=== PATIENT | male | born 1975 | race Caucasian/White ===

== ENCOUNTER 2016-12-14 16:54 | Observation (INO) | payer OTHER ==
[~2016-12-14] VITALS: Ht 185.4 cm; Wt 100.0 kg
[~2016-12-14 16:54] MED LIST: CEPH500C3 PO; PARO20 PO; SERO400T PO; TRAZ150T75 PO
[2016-12-14 16:56] VITALS: BP 138/81; PULSE 74; RESP 12; TEMP 98.1; O2SAT 98
--- NOTE | 2016-12-14 17:56 | PD ---
HPI Chief Complaint: Skin Problem Time Seen by Provider: 17:54 Travel History International Travel<30 days: No Contact w/Intl Traveler<30days: No Traveled to known affect area: No History of Present Illness HPI 41-year-old male presents to emergency Department with complaint of multiple lesions to his right arm, 1 to his left hand third digit, in one to the bottom of his right foot that have developed over the past 3-4 days. They started out looking like pimples and then may drain purulent drainage. He has never had anything like this before. Reports feeling feverish 3 days ago. Reports vomiting times one yesterday. Denies feeling feverish or vomiting today. Areas are painful. Patient to the bottom of his right foot is so painful he can 't apply pressure. No one else with a rash like this that he knows of. Denies IV drug use. Is not taking any medications or tried any treatments to relieve his symptoms. Denies allergies. No other modifying factors or associated signs and symptoms here. PFSH Past Medical History Medical History: Denies Significant Hx Diabetes: No Diminished Hearing: No Tetanus Vaccination: < 5 Years Past Surgical History Surgical History: No Previous Surgery Social History Alcohol Use: No Tobacco Use: Yes Substance Use: Yes (marijuana) Allergies-Medications (Allergen,Severity, Reaction): Coded Allergies: No Known Allergies (Verified , 12/14/16) Reported Meds & Prescriptions Reported Meds & Active Scripts Active Review of Systems Except as stated in HPI: all other systems reviewed are Neg Physical Exam Narrative GENERAL: Well-nourished, well-developed male patient, in no acute distress; afebrile, nontoxic-appearing SKIN: There are multiple indurated areas that have all drained and are scabbed over; one to the right bicep area, one to the right forearm, one to the right wrist that of all nonfluctuant and scabbed over. There is a fluctuant area to the distal aspect of the left hand third finger, consistent with a paronychia. There is a lesion to the bottom of the right foot that is open and is severely tender to touch; there is a zone of inflammation and erythema surrounding this lesion; no drainage noted. HEAD: Atraumatic. Normocephalic. EYES: Pupils equal and round. No scleral icterus. No injection or drainage. ENT: Mucosa pink and moist. Airway patent. NECK: Trachea midline. CARDIOVASCULAR: Regular rate. RESPIRATORY: No accessory muscle use. GASTROINTESTINAL: Rounded. MUSCULOSKELETAL: No obvious deformities. No clubbing. No cyanosis. No edema. NEUROLOGICAL: Awake and alert. Oriented 3. No obvious cranial nerve deficits. Motor grossly within normal limits. Normal speech. PSYCHIATRIC: Appropriate mood and affect; insight and judgment normal. Data Data Last Documented VS Vital Signs Date Time Temp Pulse Resp B/P Pulse Ox O2 Delivery O2 Flow Rate FiO2 12/14/16 20:00 18 12/14/16 16:56 98.1 74 138/81 98 Room Air Orders Foot, Complete ([id number]) (12/14/16 18:08) Ibuprofen (Motrin) (12/14/16 18:15) Wound Culture And Gram Stain (12/14/16 18:22) Tetanus/Diphtheria Tox Adult (Tetanus/Di (12/14/16 18:30) Crutches (12/14/16 19:01) Complete Blood Count With Diff (12/14/16 19:16) Basic Metabolic Panel (Bmp) (12/14/16 19:16) Blood Culture (12/14/16 19:16) Drug Screen, Random Urine (12/14/16 19:16) Iv Access Insert/Monitor (12/14/16 19:16) Clindamycin Inj (Cleocin Inj) (12/14/16 19:30) Admit Order (Ed Use Only) (12/14/16 20:05) Labs Laboratory Tests Test 12/14/16 19:45 White Blood Count 10.5 TH/MM3 Red Blood Count 4.64 MIL/MM3 Hemoglobin 13.9 GM/DL Hematocrit 40.0 % Mean Corpuscular Volume 86.3 FL Mean Corpuscular Hemoglobin 30.0 PG Mean Corpuscular Hemoglobin 34.7 % Concent Red Cell Distribution Width 13.2 % Platelet Count 314 TH/MM3 Mean Platelet Volume 9.1 FL Neutrophils (%) (Auto) 73.4 % Lymphocytes (%) (Auto) 18.7 % Monocytes (%) (Auto) 5.8 % Eosinophils (%) (Auto) 1.2 % Basophils (%) (Auto) 0.9 % Neutrophils # (Auto) 7.7 TH/MM3 Lymphocytes # (Auto) 2.0 TH/MM3 Monocytes # (Auto) 0.6 TH/MM3 Eosinophils # (Auto) 0.1 TH/MM3 Basophils # (Auto) 0.1 TH/MM3 CBC Comment DIFF FINAL Differential Comment Sodium Level 137 MEQ/L Potassium Level 3.8 MEQ/L Chloride Level 102 MEQ/L Carbon Dioxide Level 28.7 MEQ/L Anion Gap 6 MEQ/L Blood Urea Nitrogen 10 MG/DL Creatinine 0.84 MG/DL Estimat Glomerular Filtration 101 ML/MIN Rate Random Glucose 132 MG/DL Calcium Level 8.1 MG/DL MDM Medical Decision Making Medical Screen Exam Complete: Yes Emergency Medical Condition: Yes Medical Record Reviewed: Yes Differential Diagnosis Multiple abscesses, MRSA, paronychia, osteomyelitis Narrative Course 41-year-old male physical exam consistent with multiple abscesses that have drained and have scabbed over. There is an abscess to the distal aspect of the left hand third digit, consistent with paronychia, which I incised and drained. See my procedure note. There is an abscess to the bottom of the right foot that has extension of cellulitis; I'm concerned of possible osteomyelitis and will order an x-ray of the foot to rule that out. Patient reports feeling feverish 3 days ago and one time yesterday. He is afebrile and nontoxic- appearing here in the ER. He has not vomited today. Denies IV drug use. Ibuprofen administered in the ER. Right foot x-ray ordered. 1900: Porfirio Ellison PA-C, assumed patient care at this time. Report given. See his note for patient disposition. Procedures Procedure Narrative INCISION AND DRAINAGE OF ABSCESS: The distal aspect of the right third finger was prepped and was sterilely draped. A 22-gauge needle was used to make a pinpoint puncture into the the area of the abscess. Cultures were obtained. The abscess was drained an irrigated with normal saline. Sterile dressing applied. Farzana Young [facility] Dec 14, 2016 17:56
[2016-12-14] MEDS ORDERED: BACT800T5 PO (18:08)
[2016-12-14] MEDS ORDERED: CEPH-460 PO (18:08)
[2016-12-14] MEDS ORDERED: IBUP800T23 PO (18:08)
[2016-12-14] MEDS ORDERED: IBUPROFEN 800 MG TAB PO ONE (18:15)
[2016-12-14] MEDS ORDERED: TETANUS/DIPHTHERIA TOXOID ADULT 0.5 ML VIAL IM ONE (18:30)
--- NOTE | 2016-12-14 19:02 | RADRPT ---
EXAM DATE/TIME: 12/14/2016 18:31 [place] COMPARISON: No previous studies available for comparison. INDICATIONS : Right foot pain and swelling MEDICAL HISTORY : None. SURGICAL HISTORY : None. ENCOUNTER: Initial ACUITY: 1 day PAIN SCORE: 8/10 LOCATION: Right foot. FINDINGS: There is radiopaque foreign body in the plantar surface of the foot centered in between the fourth an d fifth web spaces. Fracture is not appreciated. CONCLUSION: Radiopaque foreign body. Tariq Kramer MD FACR on December 14, 2016 at 18:53 Board Certified Radiologist. This report was verified electronically.
[2016-12-14] MEDS ORDERED: CLINDAMYCIN INJ 900 MG in SODIUM CHLORIDE 0.9% INJ 100 ML IV ONE (19:30)
[2016-12-14 19:59] LABS: AUTOMATED NEUTROPHIL # 7.7 TH/MM3 (1.8-7.7); BASOPHIL # 0.1 TH/MM3 (0-0.2); BASOPHIL % 0.9 % (0.0-2.0); EOSINOPHIL # 0.1 TH/MM3 (0-0.4); EOSINOPHIL % 1.2 % (0.0-4.0); HEMO FLAGS DIFF FINAL; LYMPH % 18.7 % (9.0-44.0); MEAN CELL VOLUME 86.3 FL (80.0-100.0); MEAN CORPUSCULAR HGB CONC 34.7 % (32.0-36.0); MONO % 5.8 % (0.0-8.0); NEUT % 73.4 % (16.0-70.0); PLATELET COUNT 314 TH/MM3 (150-450); RED BLOOD COUNT 4.64 MIL/MM3 (4.50-5.90); RED CELL DISTRIBUTION WIDTH 13.2 % (11.6-17.2); WHITE BLOOD COUNT 10.5 TH/MM3 (4.0-11.0)
--- NOTE | 2016-12-14 20:12 | PD ---
Physical Exam Date Seen by Provider: Dec 14, 2016 Time Seen by Provider: 20:09 Data Data Last Documented VS Vital Signs Date Time Temp Pulse Resp B/P Pulse Ox O2 Delivery O2 Flow Rate FiO2 12/14/16 16:56 98.1 74 12 138/81 98 Room Air Orders Foot, Complete ([id number]) (12/14/16 18:08) Ibuprofen (Motrin) (12/14/16 18:15) Wound Culture And Gram Stain (12/14/16 18:22) Tetanus/Diphtheria Tox Adult (Tetanus/Di (12/14/16 18:30) Crutches (12/14/16 19:01) Complete Blood Count With Diff (12/14/16 19:16) Basic Metabolic Panel (Bmp) (12/14/16 19:16) Blood Culture (12/14/16 19:16) Drug Screen, Random Urine (12/14/16 19:16) Iv Access Insert/Monitor (12/14/16 19:16) Clindamycin Inj (Cleocin Inj) (12/14/16 19:30) Admit Order (Ed Use Only) (12/14/16 20:05) Labs Laboratory Tests Test 12/14/16 19:45 White Blood Count 10.5 TH/MM3 Red Blood Count 4.64 MIL/MM3 Hemoglobin 13.9 GM/DL Hematocrit 40.0 % Mean Corpuscular Volume 86.3 FL Mean Corpuscular Hemoglobin 30.0 PG Mean Corpuscular Hemoglobin 34.7 % Concent Red Cell Distribution Width 13.2 % Platelet Count 314 TH/MM3 Mean Platelet Volume 9.1 FL Neutrophils (%) (Auto) 73.4 % Lymphocytes (%) (Auto) 18.7 % Monocytes (%) (Auto) 5.8 % Eosinophils (%) (Auto) 1.2 % Basophils (%) (Auto) 0.9 % Neutrophils # (Auto) 7.7 TH/MM3 Lymphocytes # (Auto) 2.0 TH/MM3 Monocytes # (Auto) 0.6 TH/MM3 Eosinophils # (Auto) 0.1 TH/MM3 Basophils # (Auto) 0.1 TH/MM3 CBC Comment DIFF FINAL Differential Comment MDM Medical Record Reviewed: Yes Supervised Visit with CARLOS ALBERTO: No Interpretation(s) Right foot: Positive for body Differential Diagnosis MDM: High Differential diagnoses: Abscess, folliculitis, cellulitis, lymphangitis, abrasion, contact dermatitis Narrative Course IV access is obtained. Routine laboratory tests were analysis including CBC, chemistry, blood culture and wound culture. Patient's given clindamycin 900 mg IV. The patient has a retained foreign body in his right foot which has become infected. He has multiple superficial abscesses. The patient will necessitate IV antibiotics and surgical for minor removal from the foot by the marine superintendent. I discussed the case with who accepted the patient's admission. Diagnosis Primary Impression: Foreign body in foot, right, infected Qualified Code: S90.851A - Foreign body in foot, right, infected, initial encounter Additional Impression: Abscess Admitting Information Admitting Physician Requests: Observation Condition: Stable Porfirio Ellison Dec 14, 2016 20:12
[2016-12-14 20:19] LABS: BICARBONATE 28.7 MEQ/L (21.0-32.0); POTASSIUM 3.8 MEQ/L (3.5-5.1)
[2016-12-14] MEDS ORDERED: Vancomycin Consult Pharmacy 1 EA OTHER SCH (20:30)
[2016-12-14] MEDS ORDERED: SODIUM CHLORIDE 0.9% FLUSH 5 ML FLUSH FLUSH PRN (20:30)
[2016-12-14] MEDS ORDERED: NALOXONE HCL 0.4 MG/ML AMP IV PRN (20:30)
[2016-12-14] MEDS: SODIUM CHLORIDE 0.9% FLUSH 5 ML FLUSH FLUSH SCH (21:00)
[2016-12-14 21:15] VITALS: BP 125/68; PULSE 74; RESP 16; O2SAT 97
[2016-12-14 22:48] VITALS: BP 141/65; PULSE 68; RESP 18; TEMP 97.9; O2SAT 97
[2016-12-14] MEDS: PIPERACIL-TAZO 4.5 GM PREMIX 100 ML IV SCH (23:25)
[2016-12-14 23:45] VITALS: PULSE 88
[2016-12-15] VITALS (7 sets, daily range): BP systolic 115–136; BP diastolic 56–92; PULSE 61–73; RESP 16–20; TEMP 98–98.2; O2SAT 95–98
[2016-12-15] MEDS: VANCOMYCIN INJ 1,750 MG in SODIUM CHLORID 0.9% 500 ML INJ 500 ML IV SCH ×4 (00:19→23:52)
[2016-12-15] MEDS: PIPERACIL-TAZO 4.5 GM PREMIX 100 ML IV SCH ×4 (03:36→22:14)
[2016-12-15] MEDS: MORPHINE SULFATE 4 MG/ML INJ IV PUSH PRN ×5 (04:31→23:54)
[2016-12-15 05:30] LABS: AMPHETAMINE, URINE POS (NEG); BARBITURATES, URINE NEG (NEG); COCAINE, URINE NEG (NEG)
--- NOTE | 2016-12-15 05:30 | HHI.HP ---
[facility]ician No Primary Care Physician Admission Diagnosis infected foreign body right foot Diagnoses: Chief Complaint: Right foot pain Travel History International Travel<30 Days: No Contact w/Intl Traveler <30 Da: No Traveled to Known Affected Are: No History of Present Illness History taken from patient and ED physician. 41-year-old male with no medical history presents with increasing pain to the ball of the right foot with associated fever and vomiting. Patient states one year ago he remembers stepping on a piece of glass with his right foot but did not think the glass was still left in the. He states for the last 3 days ago the ball of his right foot started draining with pus and a lesion to his right inner forearm and right wrist also started draining. Today he developed fevers at home of an unknown temperature and vomited several times. Patient denies any history of MRSA infection. Patient states the lesions to his right inner forearm and right wrist first started out as what he thought was a pimple. He states he hasn't been unable to walk and put pressure on the ball of his right foot. He denies any numbness or tingling. Patient denies any chest pain, short of breath or diarrhea. Review of Systems Constitutional: COMPLAINS OF: Fever, DENIES: Chills Respiratory: DENIES: Cough, Sputum production, Shortness of breath Cardiovascular: DENIES: Chest pain, Syncope, Lower Extremity Edema, Orthopnea Gastrointestinal: COMPLAINS OF: Nausea, Vomiting, DENIES: Abdominal pain, Bloody stools, Constipation, Diarrhea Genitourinary: DENIES: Hematuria, Dysuria Musculoskeletal: COMPLAINS OF: Joint pain, DENIES: Back pain, Neck pain Integumentary: DENIES: Rash Hematologic/lymphatic: DENIES: Lymphadenopathy Immunologic/allergic: DENIES: Urticaria Neurologic: DENIES: Headache Past Family Social History Past Medical History Patient denies any medical history Past Surgical History Anterior cruciate ligament repair left knee 4 Reported Medications Reported Meds & Active Scripts Active Allergies: Coded Allergies: No Known Allergies (Verified , 12/14/16) Active Ordered Medications Current Medications Medications (Trade) Dose Ordered Sig/Dustin Route Start Time Stop Time Status Last Admin (NS Flush) 2 ml UNSCH PRN FLUSH 12/14/16 20:30 (NS Flush) 2 ml BID FLUSH 12/14/16 21:00 Naloxone HCl 0.4 mg 0.4 mg UNSCH PRN IV 12/14/16 20:30 Pharmacy Profile Note 0 ml @ 0 mls/hr UNSCH OTHER 12/14/16 20:30 (Zosyn 4.5 Gm Premix) 100 ml @ 200 mls/hr Q6H IV 12/14/16 21:00 12/15/16 03:36 Morphine Sulfate 2 mg 2 mg Q4H PRN IV PUSH 12/14/16 20:30 12/15/16 04:31 (Vancomycin Inj/ NS 500 ml Inj) 517.5 ml @ 250 mls/hr Q8H IV 12/14/16 22:00 12/15/16 00:19 Miscellaneous Information SPECIFIC LAB TO BE ORA... ONCE ONCE XX 12/15/16 21:45 12/15/16 21:46 Family History Patient denies any family history Social History Tobacco use: 11/29 ppd Alcohol use: Denies Illicit drug use: Marijuana Physical Exam Vital Signs Vital Signs Date Time Temp Pulse Resp B/P Pulse Ox O2 Delivery O2 Flow Rate FiO2 12/15/16 04:38 61 18 115/56 97 12/14/16 23:45 88 12/14/16 22:48 97.9 68 18 141/65 97 12/14/16 21:15 74 16 125/68 97 Room Air 12/14/16 20:00 18 12/14/16 16:56 98.1 74 12 138/81 98 Room Air Physical Exam GENERAL: This is a well-nourished, well-developed patient, in no apparent distress. SKIN: Crusted lesion to right inner forearm and right wrist. Crusted lesion to the ball of the right foot. No drainage noted HEAD: Atraumatic. Normocephalic. EYES: Pupils equal round and reactive. ENT: Nose without bleeding, purulent drainage or septal hematoma. Airway patent. NECK: Trachea midline. No JVD CARDIOVASCULAR: Regular rate and rhythm without murmurs, gallops, or rubs. RESPIRATORY: Clear to auscultation. Breath sounds equal bilaterally. No wheezes , rales, or rhonchi. GASTROINTESTINAL: Abdomen soft, non-tender, nondistended. No guarding. MUSCULOSKELETAL: Plantar surface of right foot tenderness, No calf tenderness. NEUROLOGICAL: Awake and alert. Motor and sensory grossly within normal limits. Normal speech. Laboratory Laboratory Tests Test 12/14/16 19:45 White Blood Count 10.5 Red Blood Count 4.64 Hemoglobin 13.9 Hematocrit 40.0 Mean Corpuscular Volume 86.3 Mean Corpuscular Hemoglobin 30.0 Mean Corpuscular Hemoglobin 34.7 Concent Red Cell Distribution Width 13.2 Platelet Count 314 Mean Platelet Volume 9.1 Neutrophils (%) (Auto) 73.4 Lymphocytes (%) (Auto) 18.7 Monocytes (%) (Auto) 5.8 Eosinophils (%) (Auto) 1.2 Basophils (%) (Auto) 0.9 Neutrophils # (Auto) 7.7 Lymphocytes # (Auto) 2.0 Monocytes # (Auto) 0.6 Eosinophils # (Auto) 0.1 Basophils # (Auto) 0.1 CBC Comment DIFF FINAL Differential Comment Sodium Level 137 Potassium Level 3.8 Chloride Level 102 Carbon Dioxide Level 28.7 Anion Gap 6 Blood Urea Nitrogen 10 Creatinine 0.84 Estimat Glomerular Filtration 101 Rate Random Glucose 132 Calcium Level 8.1 Date/Time Procedure Status Source Growth 12/14/16 19:45 Gram Stain Received Wound Foot Pending 12/14/16 19:45 Wound Culture Received Wound Foot Pending 12/14/16 19:45 Aerobic Blood Culture Received Blood Peripheral Pending 12/14/16 19:45 Anaerobic Blood Culture Received Blood Peripheral Pending Result Diagram: 12/14/16194412/14/161944 Imaging Last Impressions Foot X-Ray 12/14/161807 Signed Impressions: Service Date/Time: Wednesday, December 14, 2016 18:31 - CONCLUSION: Radiopaque foreign body. Tariq Kramer MD FACR Assessment and Plan Problem List: (1) Foreign body in foot, right, infected ICD Code: S90.851A Status: Acute Assessment and Plan 41-year-old male with no past medical history presented with: Foreign-body and foot, right Images reviewed foot x-ray shows Radiopaque foreign body -Vancomycin IV and Zosyn IV ordered -Wound culture pending -Podiatry consult for recommendations -Morphine IV for pain management DVT prophylaxis: SCDs Written by Leona LONDON, acting as scribe for Dr. Lombardo on 12/15/16 at 0415. The documentation accurately reflects the work performed [id number] and decisions made by me and the physician Dr Lombardo on 12/15/16. The documentation accurately reflects the work performed [id number] by me on at 0415 Discussed Condition With patient, ER PA Problem Qualifiers (1) Foreign body in foot, right, infected: Qualified Code: S90.851A - Foreign body in foot, right, infected, initial encounter Leona Aden Dec 15, 2016 05:30 Camilo Lombardo MD Dec 15, 2016 08:31
[2016-12-15] MEDS: SODIUM CHLORIDE 0.9% FLUSH 5 ML FLUSH FLUSH SCH ×2 (08:31→22:13)
--- NOTE | 2016-12-15 14:02 | PD.CONS ---
History of Present Illness Service Podiatry Consult Requested By ED Reason for Consult Right foreign body Primary Care Physician No Primary Care Physician Diagnoses: (1) Foreign body in foot, right, infected History of Present Illness Presumed glass in right foot for about a year, recent fever and swelling with pus from right foot at suspected foreign body Pt stable bedside in 06/06 pain Past Family Social History Allergies: Coded Allergies: No Known Allergies (Verified , 12/14/16) Physical Exam Vital Signs Vital Signs Date Time Temp Pulse Resp B/P Pulse Ox O2 Delivery O2 Flow Rate FiO2 12/15/16 11:44 98.1 67 16 131/62 95 12/15/16 08:01 98.2 72 20 134/92 98 12/15/16 08:00 73 12/15/16 04:38 61 18 115/56 97 12/14/16 23:45 88 12/14/16 22:48 97.9 68 18 141/65 97 12/14/16 21:15 74 16 125/68 97 Room Air 12/14/16 20:00 18 12/14/16 16:56 98.1 74 12 138/81 98 Room Air Physical Exam GENERAL: This is a well-nourished, well-developed patient, in no apparent distress. SKIN: No rashes, ecchymoses or lesions. Cool and dry. HEAD: Atraumatic. Normocephalic. No temporal or scalp tenderness. EYES: Pupils equal round and reactive. Extraocular motions intact. No scleral icterus. No injection or drainage. ENT: Nose without bleeding, purulent drainage or septal hematoma. Throat without erythema, tonsillar hypertrophy or exudate. Uvula midline. Airway patent. NECK: Trachea midline. No JVD or lymphadenopathy. Supple, nontender, no meningeal signs. CARDIOVASCULAR: Regular rate and rhythm without murmurs, gallops, or rubs. RESPIRATORY: Clear to auscultation. Breath sounds equal bilaterally. No wheezes , rales, or rhonchi. GASTROINTESTINAL: Abdomen soft, non-tender, nondistended. No hepato-splenomegaly , or palpable masses. No guarding. MUSCULOSKELETAL: Extremities without clubbing, cyanosis, or edema. No joint tenderness, effusion, or edema noted. No calf tenderness. Negative Homans sign bilaterally. NEUROLOGICAL: Awake and alert. Cranial nerves II through XII intact. Motor and sensory grossly within normal limits. Five out of 5 muscle strength in all muscle groups. Normal speech. Laboratory Laboratory Tests Test 12/14/16 12/15/16 19:45 04:42 White Blood Count 10.5 Red Blood Count 4.64 Hemoglobin 13.9 Hematocrit 40.0 Mean Corpuscular Volume 86.3 Mean Corpuscular Hemoglobin 30.0 Mean Corpuscular Hemoglobin 34.7 Concent Red Cell Distribution Width 13.2 Platelet Count 314 Mean Platelet Volume 9.1 Neutrophils (%) (Auto) 73.4 Lymphocytes (%) (Auto) 18.7 Monocytes (%) (Auto) 5.8 Eosinophils (%) (Auto) 1.2 Basophils (%) (Auto) 0.9 Neutrophils # (Auto) 7.7 Lymphocytes # (Auto) 2.0 Monocytes # (Auto) 0.6 Eosinophils # (Auto) 0.1 Basophils # (Auto) 0.1 CBC Comment DIFF FINAL Differential Comment Sodium Level 137 Potassium Level 3.8 Chloride Level 102 Carbon Dioxide Level 28.7 Anion Gap 6 Blood Urea Nitrogen 10 Creatinine 0.84 Estimat Glomerular Filtration 101 Rate Random Glucose 132 Calcium Level 8.1 Urine Opiates Screen NEG Urine Barbiturates Screen NEG Urine Amphetamines Screen POS Urine Benzodiazepines Screen NEG Urine Cocaine Screen NEG Urine Cannabinoids Screen POS Date/Time Procedure Status Source Growth 12/14/16 19:45 Gram Stain - Final Resulted Wound Foot 12/14/16 19:45 Wound Culture - Preliminary Resulted Wound Foot No growth. 12/14/16 19:45 Aerobic Blood Culture - Preliminary Resulted Blood Peripheral NO GROWTH IN 1 DAY 12/14/16 19:45 Anaerobic Blood Culture - Preliminary Resulted Blood Peripheral NO GROWTH IN 1 DAY Result Diagram: 12/14/16194412/14/161944 Imaging Xray/foreign body seen lateral xray of foot Course DP and PT pulses palpable Sensation hypersensitive Ulcer with localized edema right lateral plantar forefoot around third and fourth rays distally No move ankle up and down No proximal streaking Assessment and Plan Assessment and Plan R foot infected internal foreign body Plan is OR tomorrow for I and D with attempt to resect foreign body. Pt explained risks of surgery including infection, need for futher surgery, blood clots, residual pain. the pain concern if fully extracting the object as some objects are difficult when been internal for as long as his has been with possible excapsulation in fat and muscle and fascial layers. NPO at midnight Plan OR tomorrow at 2:30 pm Thanks for consult Problem Qualifiers (1) Foreign body in foot, right, infected: Qualified Code: S90.851A - Foreign body in foot, right, infected, initial encounter Rashaun Salgado DPM Dec 15, 2016 14:02
--- NOTE | 2016-12-15 14:17 | HHI.PR ---
Subjective Remarks Follow-up R foot infected internal foreign body 12/15/16-patient seen and examined, complains of right foot pain. Currently afebrile Objective Vitals Vital Signs Date Time Temp Pulse Resp B/P Pulse Ox O2 Delivery O2 Flow Rate FiO2 12/15/16 11:44 98.1 67 16 131/62 95 12/15/16 08:01 98.2 72 20 134/92 98 12/15/16 08:00 73 12/15/16 04:38 61 18 115/56 97 12/14/16 23:45 88 12/14/16 22:48 97.9 68 18 141/65 97 12/14/16 21:15 74 16 125/68 97 Room Air 12/14/16 20:00 18 12/14/16 16:56 98.1 74 12 138/81 98 Room Air I/O 12/14/16 12/14/16 12/14/16 12/15/16 12/15/16 12/15/16 07:00 15:00 23:00 07:00 15:00 23:00 Intake Total 320 ml Balance 320 ml Intake Oral 320 ml Result Diagram: 12/14/16194412/14/161944 Imaging Last Impressions Foot X-Ray 12/14/161807 Signed Impressions: Service Date/Time: Wednesday, December 14, 2016 18:31 - CONCLUSION: Radiopaque foreign body. Tariq Kramer MD FACR Objective Remarks GENERAL: NAD SKIN: Warm and dry.R foot infected internal foreign body and tender to palpation HEAD: Normocephalic. EYES: No scleral icterus. No injection or drainage. NECK: Supple, trachea midline. No JVD or lymphadenopathy. CARDIOVASCULAR: Regular rate and rhythm without murmurs, gallops, or rubs. RESPIRATORY: Breath sounds equal bilaterally. No accessory muscle use. GASTROINTESTINAL: Abdomen soft, non-tender, nondistended. MUSCULOSKELETAL: No cyanosis, or edema. BACK: Nontender without obvious deformity. No CVA tenderness. A/P Problem List: (1) Foreign body in foot, right, infected ICD Code: S90.851A Status: Acute Assessment and Plan 41-year-old male with 1-R foot infected internal foreign body : Currently on Zosyn, vancomycin pending culture. Appreciate input from podiatry who plan for removal of foreign body tomorrow 12/16/16. Pain management/anti-emetics 2-Tobacco abuse: Counseled to quit, start nicotine patch 3-PSA: UDS positive for Cannabinoid, patient advised against 4-DVT prophylaxis: Not indicated Problem Qualifiers (1) Foreign body in foot, right, infected: Qualified Code: S90.851A - Foreign body in foot, right, infected, initial encounter Tr Borrego MD Dec 15, 2016 14:17
[2016-12-15] MEDS ORDERED: ONDANSETRON HCL 4 MG/2 ML VIAL IV PRN (14:30)
[2016-12-15] MEDS ORDERED: ACETAMINOPHEN 325 MG TAB PO PRN (14:30)
[2016-12-15] MEDS ORDERED: ZOLPIDEM TARTRATE 5 MG TAB PO PRN (14:30)
[2016-12-15] MEDS ORDERED: IBUPROFEN 600 MG TAB PO PRN (14:30)
[2016-12-15] MEDS: NICOTINE 21 MG/24 HR PATCH TD SCH (18:33)
[2016-12-15] MEDS ORDERED: PHARMACY ORDERED LAB XX ONE (21:45)
[2016-12-16 01:00] VITALS: BP 117/69; PULSE 63; RESP 16; TEMP 97.4; O2SAT 98
[2016-12-16] MEDS: PIPERACIL-TAZO 4.5 GM PREMIX 100 ML IV SCH ×4 (04:01→15:00)
[2016-12-16 04:45] VITALS: BP 112/57; PULSE 57; RESP 16; TEMP 97; O2SAT 94
[2016-12-16] MEDS: VANCOMYCIN INJ 1,750 MG in SODIUM CHLORID 0.9% 500 ML INJ 500 ML IV SCH ×2 (06:44→14:00)
[2016-12-16 06:51] LABS: BICARBONATE 25.2 MEQ/L (21.0-32.0)
[2016-12-16 06:55] LABS: AUTOMATED NEUTROPHIL # 4.5 TH/MM3 (1.8-7.7); BASOPHIL # 0.1 TH/MM3 (0-0.2); BASOPHIL % 0.9 % (0.0-2.0); EOSINOPHIL # 0.2 TH/MM3 (0-0.4); EOSINOPHIL % 2.2 % (0.0-4.0); HEMO FLAGS DIFF FINAL; LYMPH % 26.4 % (9.0-44.0); MEAN CELL VOLUME 87.6 FL (80.0-100.0); MEAN CORPUSCULAR HEMOGLOBIN 30.2 PG (27.0-34.0); MEAN CORPUSCULAR HGB CONC 34.5 % (32.0-36.0); MONO % 9.5 % (0.0-8.0); PLATELET COUNT 314 TH/MM3 (150-450); RED BLOOD COUNT 4.45 MIL/MM3 (4.50-5.90); RED CELL DISTRIBUTION WIDTH 13.4 % (11.6-17.2); WHITE BLOOD COUNT 7.4 TH/MM3 (4.0-11.0)
[2016-12-16 08:16] VITALS: BP 119/58; PULSE 65; RESP 18; TEMP 98.6; O2SAT 93
--- NOTE | 2016-12-16 08:30 | HHI.PR ---
Subjective Remarks Follow-up R foot infected internal foreign body 12/15/16-patient seen and examined, complains of right foot pain. Currently afebrile 12/16/16-patient seen and examined; no complaints of right foot pain. Currently nothing by mouth and afebrile Objective Vitals Vital Signs Date Time Temp Pulse Resp B/P Pulse Ox O2 Delivery O2 Flow Rate FiO2 12/16/16 08:16 98.6 65 18 119/58 93 12/16/16 04:45 97.0 57 16 112/57 94 12/16/16 01:00 97.4 63 16 117/69 98 12/16/16 00:03 22 12/15/16 20:58 98.0 62 20 130/56 98 12/15/16 19:55 66 12/15/16 16:01 98.0 69 18 136/74 95 12/15/16 11:44 98.1 67 16 131/62 95 I/O 12/15/16 12/15/16 12/15/16 12/16/16 12/16/16 12/16/16 07:00 15:00 23:00 07:00 15:00 23:00 Intake Total 100 ml 600 ml Output Total 1150 ml 1525 ml Balance 100 ml -550 ml -1525 ml IV Total 100 ml 600 ml Output Urine Total 1150 ml 1525 ml Result Diagram: 12/16/16 0603 12/16/16 0603 Objective Remarks GENERAL: NAD SKIN: Warm and dry.R foot infected internal foreign body and tender to palpation -and dressing of the foot HEAD: Normocephalic. EYES: No scleral icterus. No injection or drainage. NECK: Supple, trachea midline. No JVD or lymphadenopathy. CARDIOVASCULAR: Regular rate and rhythm without murmurs, gallops, or rubs. RESPIRATORY: Breath sounds equal bilaterally. No accessory muscle use. GASTROINTESTINAL: Abdomen soft, non-tender, nondistended. MUSCULOSKELETAL: No cyanosis, or edema. BACK: Nontender without obvious deformity. No CVA tenderness. A/P Problem List: (1) Foreign body in foot, right, infected ICD Code: S90.851A Status: Acute Assessment and Plan 41-year-old male with 1-R foot infected internal foreign body : Currently on Zosyn, vancomycin pending culture. Appreciate input from podiatry who plan for removal of foreign body today 12/16/16. Nothing by mouth and continue Pain management/anti -emetics 2-Tobacco abuse: Counseled to quit, on nicotine patch 3-PSA: UDS positive for Cannabinoid, patient advised against 4-DVT prophylaxis: Not indicated Problem Qualifiers (1) Foreign body in foot, right, infected: Qualified Code: S90.851A - Foreign body in foot, right, infected, initial encounter Tr Borrego MD Dec 16, 2016 08:30
[2016-12-16] MEDS: MORPHINE SULFATE 4 MG/ML INJ IV PUSH PRN (08:45)
[2016-12-16] MEDS: NICOTINE 21 MG/24 HR PATCH TD SCH (08:45)
[2016-12-16] MEDS: SODIUM CHLORIDE 0.9% FLUSH 5 ML FLUSH FLUSH SCH (08:45)
[2016-12-16] MEDS ORDERED: PROPOFOL 200 MG/20 ML AMP IV ONE (12:00)
[2016-12-16 12:27] VITALS: BP 134/80; PULSE 68; RESP 18; TEMP 98.2; O2SAT 95
[2016-12-16] MEDS ORDERED: BUPIVACAINE HCL PF 0.25% 30 ML VIAL ONE (13:31)
[2016-12-16] MEDS ORDERED: FAMOTIDINE 20 MG/2 ML VIAL ONE (14:37)
[2016-12-16] MEDS ORDERED: MIDAZOLAM HCL 2 MG/2 ML VIAL ONE (14:37)
[2016-12-16] MEDS ORDERED: LIDOCAINE HCL 1% 50 ML VIAL INFIL ONE (14:57)
[2016-12-16] MEDS ORDERED: NEOMYCIN/POLYMYXIN 1 ML G.U. IRRIGANT IR ONE (15:00)
[2016-12-16] MEDS ORDERED: NORC5TAB PO (15:17)
[2016-12-16] MEDS ORDERED: BACT800T5 (15:17)
[2016-12-16 15:21] VITALS: TEMP 98.3
--- NOTE | 2016-12-16 15:30 | RADRPT ---
EXAM DATE/TIME: 12/16/2016 15:04 [facility] COMPARISON: No previous studies available for comparison. INDICATIONS : Forgein body right foot, stepped on glass MEDICAL HISTORY : None. SURGICAL HISTORY : None. ENCOUNTER: Initial ACUITY: >1 year PAIN SCORE: Non-responsive. LOCATION: Right Foot FINDINGS: Single lateral view of the right foot reveals grossly normal bony alignment. No definite evidence of fracture or dislocation. No foreign body is identified. CONCLUSION: 1. No foreign body is identified. Neil Michel MD on December 16, 2016 at 15:28 Board Certified Radiologist. This report was verified electronically.
[2016-12-16 15:45] VITALS: BP 119/72; PULSE 75; RESP 16; O2SAT 97
[2016-12-16] MEDS ORDERED: DO NOT ADM ANY ANTICOAGULANT DRUGS XX PRN (16:00)
--- NOTE | 2016-12-16 17:09 | HHI.PR ---
Addendum to Inpatient Note Addendum Reason: Additional Documentation Additional Information s/p Removal of foreign body from the right foot Clear for discharge Discharge patient to home Condition on discharge: Improved Regular Diet as tolerated Ad Jannette activity Rx written:see EMR Follow-up with primary care physician in 1 week Tr Borrego MD Dec 16, 2016 17:09
--- NOTE | 2016-12-16 17:47 | RADRPT ---
EXAM DATE/TIME: 12/16/2016 15:38 [facility] COMPARISON: FOOT RIGHT COMPLETE ([id number]), December 14, 2016, 18:31. INDICATIONS : Post removal foreign body right foot MEDICAL HISTORY : None. SURGICAL HISTORY : None. ENCOUNTER: Initial ACUITY: >1 year PAIN SCORE: 0/10 LOCATION: Right Foot FINDINGS: Three view examination of the right foot demonstrates no dislocation or fracture. The tarsal bones appear intact. The previously noted radiopaque foreign body has been removed. The interphalangeal an d metatarsophalangeal joints are main intact. The calcaneus is intact. Bony mineralization is normal . There is soft tissue swelling and overlying bandages along the lateral volar portion of the foot. CONCLUSION: Total removal of the previously noted radiopaque foreign body with no definite residu al there is a soft tissue swelling and overlying bandages. Lee Daigle MD on December 16, 2016 at 17:44 Board Certified Radiologist. This report was verified electronically.
[2016-12-17] MEDS ORDERED: PHARMACY ORDERED LAB XX ONE (05:45)
--- NOTE | 2016-12-21 19:47 | MP ---
cc: DARRIUS NAVARRETE DPM DATE OF SURGERY: 12/21/2016 PREOPERATIVE DIAGNOSIS: 1. Right foot infection. 2. Right foot foreign body. POSTOPERATIVE DIAGNOSIS: 1. Right foot infection. 2. Right foot foreign body. OPERATION: 1. Right foot incision and drainage with excision of foreign body. 2. Betadine dressing. SURGEON: Darrius Navarrete DPM. [employer]: Staff. ANESTHESIA: Mac with 10 cc of 0.25% Marcaine and 1% Lidocaine plain preoperatively in a 1:1 mixture and 10 cc of 0.25% Marcaine plain postoperatively. TOURNIQUET TIME: Seven minutes at 250 mmHg right ankle. DISPOSITION: The patient handled the anesthesia well. INDICATIONS FOR THE PROCEDURE: This patient is a 41-year-old male who sustained broken glass in his foot about a year ago. He has been trying to walk it off and walk through it. He came into the emergency department two days ago with pain and increased redness, swelling and drainage from his right foot. X-ray revealed a foreign body radiopacity on the lateral view in the forefoot just slightly lateral to the fourth metatarsal head plantarly about 1 cm from the superficial skin. The patient is requiring surgical intervention of the problem at this time due to risk of sepsis and right foot infection with foreign body. The patient understands the procedure performed today as well as the risks and complications and all questions were answered. The risks versus benefits were discussed at length. DESCRIPTION OF THE PROCEDURE IN DETAIL: The patient was brought to the operating room and placed on the operating room table in the supine position. A pneumatic ankle tourniquet was placed about the right ankle. The foot was anesthetized with 10 cc of 0.25% Marcaine plain and 1% lidocaine plain. The foot was scrubbed, prepped and draped in the usual sterile fashion. First attention was directed after the tourniquet was inflated in which a 15 blade was used to debride the callus tissue. There was about a 0.2 cm ulcer and that was debrided down and approximately 1.2 cm depth. There was a large foreign body that was clear, hard and irregular that was sent to pathology for evaluation. A C-arm was used to reveal that there was no more foreign body on the lateral view. Exploration and incision and drainage was obtained. There was no tracking to the bone and it was just superficial to the area where the foreign body was retained. After copious irrigation, the foot was anesthetized with 10 cc of 0.25% Marcaine plain and a Betadine-soaked Adaptic 4x4, cast padding and an Reji was used to wrap the foot. The patient handled the anesthesia well. CRISTIANA Pulido/YOUSIF /3:13 PM /7:36 PM JULIO
== END 2016-12-16 19:49 | disposition home or self-care (01) ==
LOC: NEPB 16:54 → NEDA 20:07 → NEPFCDU 22:26
PROVIDERS: ADMIT Hospitalist; ATTEND Hospitalist
DX: L02.611 Cutaneous abscess of right foot (principal); B95.0 Streptococcus, group A, as the cause of diseases classified elsewhere; M79.5 Residual foreign body in soft tissue; L03.012 Cellulitis of left finger; L02.413 Cutaneous abscess of right upper limb; L03.115 Cellulitis of right lower limb; R50.9 Fever, unspecified; R11.10 Vomiting, unspecified
CPT/HCPCS: 01470; 10060; 28193; 73620; 73630; 76000; 80048; 80202; 80307; 85025; 86403; 87015; 87040; 87070; 87102; 87116; 87205; 87206; 88300; 90471; 90714; 99284; E0113; G0378; J2250; J2270; J2543; J3010; J3370; J7040